=== PATIENT | female | born 1945 | race Caucasian/White ===

== ENCOUNTER 2021-01-09 08:44 | Emergency (ER) | payer MEDICARE ==
[~2021-01-09] VITALS: Wt 74.8 kg
[~2021-01-09 08:44] MED LIST: ASPIRIN CHEWABL81 MG PO; ATORVASTATIN CA80 M1 PO; CALCIUM 500 +1 EAC3 PO; CARVEDILOL3.125 MG PO; CHONDROITIN PO; COQ10 PO; LISINOPRIL5 MG PO; OMEGA-31000 M1 PO; OMEPRAZOLE20 M2 PO; PLAVIX75 M1 PO; PROBIOTIC PO; SIMVASTATIN40 MG PO; SUNMARK OMEPRAZ20 MG PO; VITAMINS FOR HA1 CAP PO
[2021-01-09 09:14] LABS: BASO % 0.4 % (0.0-1.0); EOS # 0.2 10*3/uL (0.0-0.4); HEMATOCRIT 38.6 % (37.0-47.0); LYMPH # 1.5 10*3/uL (1.3-4.4); LYMPH % 17.7 % (27.0-41.0); MEAN CELL VOLUME 97.2 fl (81.0-99.0); MEAN CORPUSCULAR HGB 32.5 pg (27.0-31.0); MEAN CORPUSCULAR HGB CONC 33.4 g/dl (33.0-37.0); MEAN PLATELET VOLUME 9.7 fl (9.6-12.3); MONO # 0.6 10*3/uL (0.1-1.0); MONO % 7.2 % (3.0-9.0); NEUT % 72.6 % (47.0-73.0); PLATELET COUNT AUTOMATED 252 10*3/uL (130-400); RED BLOOD COUNT 3.97 10*6/uL (4.10-5.10); RED CELL DISTRI WIDTH 13.5 % (0-14.5); WHITE BLOOD COUNT 8.3 10*3/uL (4.8-10.8)
[2021-01-09 09:27] LABS: CREATININE 1.17 mg/dL (0.55-1.02); POTASSIUM 3.7 mmol/L (3.5-5.1)
[2021-01-09] MEDS ORDERED: MIRALAX POWDER17 G1 PO (10:41)
[2021-01-09] MEDS ORDERED: ULTRAM50 MG PO (10:41)
== END 2021-01-09 10:52 | disposition home or self-care (01) ==
LOC: ED 08:44
PROVIDERS: Emergency Medicine
DX: M48.54XA Collapsed vertebra, not elsewhere classified, thoracic region, initial encounter for fracture (principal); N18.30 Chronic kidney disease, stage 3 unspecified; I25.10 Atherosclerotic heart disease of native coronary artery without angina pectoris; I25.2 Old myocardial infarction; Z88.2 Allergy status to sulfonamides; Z79.899 Other long term (current) drug therapy; Z79.82 Long term (current) use of aspirin; Z95.818 Presence of other cardiac implants and grafts